=== PATIENT | male | born 1970 ===

== ENCOUNTER 2020-09-28 05:35 | Day surgery (SDC) | payer OTHER ==
[~2020-09-28 05:35] MED LIST: CARVEDILOL25 MG PO; LIPIT PO; TAMS0.4C PO
[2020-09-28] MEDS ORDERED: CIPRO500 MG PO (14:07)
[2020-09-28] MEDS ORDERED: PROTONIX40 MG PO (14:07)
[2020-09-28] MEDS ORDERED: ULTRACET PO (14:07)
== END 2020-09-28 20:40 | disposition home or self-care (01) ==
LOC: CIR.AMB 05:35
PROVIDERS: ATTEND Surgery
DX: K40.90 Unilateral inguinal hernia, without obstruction or gangrene, not specified as recurrent (principal); Z20.822 Contact with and (suspected) exposure to COVID-19